=== PATIENT | female | born 2000 | race Caucasian/White ===

== ENCOUNTER 2022-06-18 18:49 | Inpatient (IN) ==
[2022-06-18] MEDS ORDERED: ACETYLCYSTEINE IV ONE (19:32)
[2022-06-18] MEDS ORDERED: ONDANSETRON INJ 2 MG/ML 2 ML VIAL IV STA (19:32)
[2022-06-18] MEDS ORDERED: DEXTROSE 5% IV ONE (19:32)
[2022-06-18] MEDS ORDERED: AcetylCYSTEINE IV 21 HR REGIMEN (>40KG) IV STA (19:32)
[2022-06-18] MEDS ORDERED: SODIUM CHLORIDE 0.9% 1000ML 1,000 ML IV ONE (19:32)
[2022-06-18] MEDS ORDERED: ONDANSETRON INJ 2 MG/ML 2 ML VIAL ONE (19:33)
--- NOTE | 2022-06-18 19:44 | Emergency Department Note ---
Impression & Plan Depression with suicidal ideation, Acetaminophen overdose, Suicide attempt by multiple drug overdose, Nausea & vomiting ED Provider Note NAME: SHERWIN PRUITT AGE: 21 SEX: F : 2000 ARRIVES VIA: Walk-In INFORMANT: Patient, the patient's roommates ED PROVIDER(S): Elder Escalante DO CHIEF COMPLAINT: Suicidal gesture HPI: The patient is a 21-year-old female who has a history of mood disorder who presented to the emergency department for an evaluation of possible overdose. The patient admitted to roommates that she took an overdose of multiple gmhe-pko-talswvr medications including DayQuil NyQuil ibuprofen and acetaminophe n this morning at approximately 0500. States that she was out drinking late last night. The patient is being very evasive and vague. She is not being forthcoming with why she did this. Roommates states that she may have been depressed although they also do not have a definite reason why the patient did this. The patient states that she has no previous history of suicidal gesture. She states that she has no previous history of mental health admission. She has had episodes of right upper quadrant pain as well as vomiting. Poison Control Center was called prior to my involvement. Given the patient's presentation and symptoms at this time they recommend N-acetylcysteine. ROS: See above HPI for pertinent positives & negatives. A total of 10 systems reviewed and were otherwise negative. PAST MEDICAL HISTORY: See Below PAST SURGICAL HISTORY: See Below FAMILY HISTORY: See Below SOCIAL HISTORY: See Below HOME MEDICATIONS: See Below ALLERGIES: See Below VITALS: See Below PHYSICAL EXAMINATION: GENERAL: The patient is awake and alert. She is very anxious appearing. She is actively vomiting into an emesis basin. EYES: The conjunctivae are clear. The pupils are round and reactive. EARS, NOSE, MOUTH AND THROAT: The nose is without any evidence of any deformity. NECK: The neck is nontender and supple. RESPIRATORY: Normal respiratory effort is noted there is no evidence of wheezing rhonchi or rales CARDIOVASCULAR: Tachycardic and regular heart sounds were noted auscultation. There is no definite murmur. GASTROINTESTINAL: The abdomen is soft and nondistended. There is right upper quadrant tenderness to palpation but no guarding or rigidity. MUSCULOSKELETAL/EXTREMITIES: There is no evidence of gross deformity full range of motion is noted in the hips and shoulders. SKIN: There is no obvious evidence of any rash. There are no petechiae, pallor or cyanosis noted. NEUROLOGIC: Patient is awake alert and oriented x3. Gait was steady. PSYCH: The patient's affect is flat. She makes very poor eye contact. She currently does admit to this episode being a suicidal gesture. MEDICAL DECISION MAKING: The patient is a 21-year-old female who presented to the emergency department for an evaluation after it became known that she attempted to harm her self by taking multiple qlob-cav-xzmejvb medications and is suicidal gesture this morning. The patient presented with symptomatic Tylenol toxicity. She had nausea vomiting and right upper quadrant tenderness. Poison control was consulted and they recommended the patient be admitted medically for N- acetylcysteine protocol. Patient was treated with IV fluids and IV antiemetics. She was reevaluated multiple times. I discussed her case with the on-call [facility] hospitalist. They have agreed to evaluate the patient in the emergency department for further management and disposition. Triage Nursing notes reviewed. Prior medical records reviewed Vital Signs: reviewed and remarkable for tachycardia. Differential diagnosis: Mood disorder, infection, hypoglycemia, electrolyte abnormalities, cardiac sources, intracerebral event, toxicologic, trauma, neurologic, as well as other pathologies. ER treatment provided: See below Diagnostics interpreted by me: ECG: EKG was obtained in the emergency department. My interpretation is 91 bpm with sinus rhythm. There is no ectopy. There is no acute ST segment abnormalities. MT interval is 144 ms. QTc is 460 ms. QRS durations is 78 ms. Cardiac Monitoring: An order was placed for continuous cardiac monitoring. The monitor shows a rate of 94 bpm with sinus rhythm. Laboratory studies: As stated above and show below. Imaging studies: See below Consultation(s): Dr. العلي was notified about the patient. He will evaluate the patient in the emergency department for further management and disposition. ED COURSE: Procedures: none Critical Care: I have personally spent greater than 45 minutes of critical care time in the direct management of this patient. This includes bedside care, interpretation of diagnostic studies, and testing, discussion with consultants, patient, and family members, and other required patient management activities. This 45 minutes is in excess of all separately billable procedures. Past Med/Surg History Medical History IUD (intrauterine device) in place Mood disorder Surgical History No pertinent past surgical history Social History Smoking Status: Current every day smoker Tobacco Type: E-cigarettes / Vaping Preferred Language: Arabic marital status: Single current occupational status: student Feels Safe at Home: Yes Allergies Allergies Allergy/AdvReac Type Severity Reaction Status Date / Time No Known Allergies Allergy Verified 04/06/21 19:46 Home Meds Previous Rx's Medication Instructions Recorded oxycodone 5 mg tablet 5 mg PO Q8H PRN pain #11 tabs 04/06/21 Results & Data (ED) Vital Signs Vital Signs - 24 hr 06/18/22 19:11 06/18/22 21:00 06/18/22 21:30 Temperature 36.9 C Temperature Source Temporal Artery Scan Pulse Rate 132 H 96 H Pulse Rate from SpO2 Sensor Respiratory Rate 19 19 Respiratory Effort / Characteristics Non-Labored Spontaneous Respiratory Depth Normal Respiratory Pattern Regular Blood Pressure 135/84 120/53 L 122/70 Blood Pressure Mean 101 75 87 Pulse Oximetry 99 100 Oxygen Delivery Method Room Air Room Air Sepsis Recent Fever Within 48 Hours No Sepsis New/Unexplained Change in Mental Status N/A Sepsis Action Taken by Nursing No Action Required 06/18/22 21:30 06/18/22 22:00 06/18/22 22:00 Temperature Temperature Source Pulse Rate 86 94 H Pulse Rate from SpO2 Sensor 88 92 H Respiratory Rate 22 18 Respiratory Effort / Characteristics Respiratory Depth Respiratory Pattern Blood Pressure 127/73 Blood Pressure Mean 91 Pulse Oximetry 98 98 Oxygen Delivery Method Sepsis Recent Fever Within 48 Hours Sepsis New/Unexplained Change in Mental Status Sepsis Action Taken by Jail Medications Current Medication List: was personally reviewed by me Laboratory Data Attestation: I reviewed the patient's lab results. Result diagrams: 06/18/22 19:40 06/18/22 19:40 Lab Results 06/18/22 06/18/22 06/18/22 Range/Units 19:40 19:40 19:40 WBC 10.10 (4.8-10.8) K/ul RBC 4.34 (3.93-5.22) M/uL Hgb 11.8 L (12.0-16.0) g/dl Hct 36.2 (34.1-44.9) % MCV 83.4 (80.0-100.0) fL MCH 27.2 (25.0-34.0) pg MCHC 32.6 (32.0-36.0) g/dL RDW Std Deviation 52.4 H (36.4-46.3) fL RDW Coeff of Aaron 17.1 H (11.5-14.5) % Plt Count 386 (130-400) K/uL MPV 10.3 (9.4-12.3) fL Immature Gran % (Auto) 0.4 % Neut % (Auto) 73.0 % Lymph % (Auto) 16.1 % [place] % (Auto) 9.7 % Eos % (Auto) 0.1 % Baso % (Auto) 0.7 % Neut # (Auto) 7.37 H (1.4-6.5) K/uL Lymph # (Auto) 1.63 (1.2-3.4) K/uL [place] # (Auto) 0.98 H (0.24-0.82) K/uL Eos # (Auto) 0.01 (0-0.50) K/uL Baso # (Auto) 0.07 (0-0.2) K/uL Immature Gran # (Auto) 0.04 H (0.00-0.02) K/uL PT (9.0-12.0) Seconds INR (0.9-1.1) APTT (21.0-31.0) Seconds PTT Ratio VBG pH (7.36-7.41) VBG pCO2 (38-50) mmHg VBG pO2 mmHg VBG HCO3 mmol/L VBG O2 Saturation % VBG Base Excess mEq/L Sodium 137 (136-145) mmol/L Potassium 4.5 (3.5-5.1) mmol/L Chloride 104 (98-107) mmol/L Carbon Dioxide 20 L (21-32) mmol/L Anion Gap 13 H (3-11) BUN 9 (6-23) mg/dl Creatinine 1.08 (0.6-1.2) mg/dl Est Cr Clr Drug Dosing 69.4 ml/min Est GFR ( Amer) 85.6 ml/min Est GFR (Non-Af Amer) 73.8 ml/min BUN/Creatinine Ratio 8.3 L (10-20) Glucose 118 H (70-99(Fasting)) mg/dl Calcium 9.2 (8.5-10.1) mg/dl Total Bilirubin 0.3 (0.2-1.0) mg/dl Direct Bilirubin 0.1 (0-0.2) mg/dl AST 16 (13-39) U/L ALT 12 (7-52) U/L Alkaline Phosphatase 75 (34-104) U/L Total Protein 8.4 H (6.0-8.3) gm/dl Albumin 4.7 (3.4-5.0) gm/dl Globulin 3.7 (2.5-4.0) gm/dl Albumin/Globulin Ratio 1.3 (0.9-2) TSH 0.521 (0.300-4.500) uIu/ml Urine Color Urine Appearance (Clear) Urine pH (4.5-7.5) Ur Specific [place] (1.000-1.030) Urine Protein (Negative) Urine Glucose (UA) (Negative) Urine Ketones (Negative) Urine Blood (Negative) Urine Nitrite (Negative) Urine Bilirubin (Negative) Urine Urobilinogen (Negative) Ur Leukocyte Esterase (Negative) Urine WBC (Auto) (0-5) /hpf Urine RBC (Auto) (0-4) /hpf U Hyaline Cast (Auto) (0-5) /lpf U Epithel Cells (Auto) (0-5) /lpf Urine Bacteria (Auto) (Negative) Salicylates (3.0-30) mg/dl Acetaminophen (10-30) ug/ml Ethyl Alcohol mg/dL (<10.0) mg/dl SARS-CoV-2, RNA, NAAT (NEGATIVE) 06/18/22 06/18/22 06/18/22 Range/Units 19:40 19:40 19:40 WBC (4.8-10.8) K/ul RBC (3.93-5.22) M/uL Hgb (12.0-16.0) g/dl Hct (34.1-44.9) % MCV (80.0-100.0) fL MCH (25.0-34.0) pg MCHC (32.0-36.0) g/dL RDW Std Deviation (36.4-46.3) fL RDW Coeff of Aaron (11.5-14.5) % Plt Count (130-400) K/uL MPV (9.4-12.3) fL Immature Gran % (Auto) % Neut % (Auto) % Lymph % (Auto) % [place] % (Auto) % Eos % (Auto) % Baso % (Auto) % Neut # (Auto) (1.4-6.5) K/uL Lymph # (Auto) (1.2-3.4) K/uL [place] # (Auto) (0.24-0.82) K/uL Eos # (Auto) (0-0.50) K/uL Baso # (Auto) (0-0.2) K/uL Immature Gran # (Auto) (0.00-0.02) K/uL PT 12.1 H (9.0-12.0) Seconds INR 1.1 (0.9-1.1) APTT 25.4 (21.0-31.0) Seconds PTT Ratio 0.9 VBG pH (7.36-7.41) VBG pCO2 (38-50) mmHg VBG pO2 mmHg VBG HCO3 mmol/L VBG O2 Saturation % VBG Base Excess mEq/L Sodium (136-145) mmol/L Potassium (3.5-5.1) mmol/L Chloride (98-107) mmol/L Carbon Dioxide (21-32) mmol/L Anion Gap (3-11) BUN (6-23) mg/dl Creatinine (0.6-1.2) mg/dl Est Cr Clr Drug Dosing ml/min Est GFR ( Amer) ml/min Est GFR (Non-Af Amer) ml/min BUN/Creatinine Ratio (10-20) Glucose (70-99(Fasting)) mg/dl Calcium (8.5-10.1) mg/dl Total Bilirubin (0.2-1.0) mg/dl Direct Bilirubin (0-0.2) mg/dl AST (13-39) U/L ALT (7-52) U/L Alkaline Phosphatase (34-104) U/L Total Protein (6.0-8.3) gm/dl Albumin (3.4-5.0) gm/dl Globulin (2.5-4.0) gm/dl Albumin/Globulin Ratio (0.9-2) TSH (0.300-4.500) uIu/ml Urine Color Urine Appearance (Clear) Urine pH (4.5-7.5) Ur Specific [place] (1.000-1.030) Urine Protein (Negative) Urine Glucose (UA) (Negative) Urine Ketones (Negative) Urine Blood (Negative) Urine Nitrite (Negative) Urine Bilirubin (Negative) Urine Urobilinogen (Negative) Ur Leukocyte Esterase (Negative) Urine WBC (Auto) (0-5) /hpf Urine RBC (Auto) (0-4) /hpf U Hyaline Cast (Auto) (0-5) /lpf U Epithel Cells (Auto) (0-5) /lpf Urine Bacteria (Auto) (Negative) Salicylates < 3.0 L (3.0-30) mg/dl Acetaminophen 27 (10-30) ug/ml Ethyl Alcohol mg/dL < 10.0 (<10.0) mg/dl SARS-CoV-2, RNA, NAAT (NEGATIVE) 06/18/22 06/18/22 06/18/22 Range/Units 19:49 19:55 21:43 WBC (4.8-10.8) K/ul RBC (3.93-5.22) M/uL Hgb (12.0-16.0) g/dl Hct (34.1-44.9) % MCV (80.0-100.0) fL MCH (25.0-34.0) pg MCHC (32.0-36.0) g/dL RDW Std Deviation (36.4-46.3) fL RDW Coeff of Aaron (11.5-14.5) % Plt Count (130-400) K/uL MPV (9.4-12.3) fL Immature Gran % (Auto) % Neut % (Auto) % Lymph % (Auto) % [place] % (Auto) % Eos % (Auto) % Baso % (Auto) % Neut # (Auto) (1.4-6.5) K/uL Lymph # (Auto) (1.2-3.4) K/uL [place] # (Auto) (0.24-0.82) K/uL Eos # (Auto) (0-0.50) K/uL Baso # (Auto) (0-0.2) K/uL Immature Gran # (Auto) (0.00-0.02) K/uL PT (9.0-12.0) Seconds INR (0.9-1.1) APTT (21.0-31.0) Seconds PTT Ratio VBG pH 7.35 L (7.36-7.41) VBG pCO2 35 L (38-50) mmHg VBG pO2 65 mmHg VBG HCO3 19 mmol/L VBG O2 Saturation 93.6 % VBG Base Excess -5.6 mEq/L Sodium (136-145) mmol/L Potassium (3.5-5.1) mmol/L Chloride (98-107) mmol/L Carbon Dioxide (21-32) mmol/L Anion Gap (3-11) BUN (6-23) mg/dl Creatinine (0.6-1.2) mg/dl Est Cr Clr Drug Dosing ml/min Est GFR ( Amer) ml/min Est GFR (Non-Af Amer) ml/min BUN/Creatinine Ratio (10-20) Glucose (70-99(Fasting)) mg/dl Calcium (8.5-10.1) mg/dl Total Bilirubin (0.2-1.0) mg/dl Direct Bilirubin (0-0.2) mg/dl AST (13-39) U/L ALT (7-52) U/L Alkaline Phosphatase (34-104) U/L Total Protein (6.0-8.3) gm/dl Albumin (3.4-5.0) gm/dl Globulin (2.5-4.0) gm/dl Albumin/Globulin Ratio (0.9-2) TSH (0.300-4.500) uIu/ml Urine Color Yellow Urine Appearance Cloudy A (Clear) Urine pH 6.0 (4.5-7.5) Ur Specific [place] 1.019 (1.000-1.030) Urine Protein 2+ H (Negative) Urine Glucose (UA) Negative (Negative) Urine Ketones 1+ H (Negative) Urine Blood Negative (Negative) Urine Nitrite Negative (Negative) Urine Bilirubin Negative (Negative) Urine Urobilinogen Negative (Negative) Ur Leukocyte Esterase Negative (Negative) Urine WBC (Auto) >30 H (0-5) /hpf Urine RBC (Auto) 0-4 (0-4) /hpf U Hyaline Cast (Auto) 5-10 H (0-5) /lpf U Epithel Cells (Auto) >30 H (0-5) /lpf Urine Bacteria (Auto) Negative (Negative) Salicylates (3.0-30) mg/dl Acetaminophen (10-30) ug/ml Ethyl Alcohol mg/dL (<10.0) mg/dl SARS-CoV-2, RNA, NAAT NEGATIVE (NEGATIVE) Administered Medications Acetylcysteine 2,650 mg/ (Dextrose) 513.25 mls @ 125 mls/hr IV ONCE ONE Stop: 06/19/22 00:39 Last Admin: 06/18/22 21:45 Dose: 125 mls/hr Documented By: BINA Discontinued Medications Sodium Chloride (Nss 1000ml) 1,000 mls @ 999 mls/hr IV .Q1H1M ONE Stop: 06/18/22 20:32 Last Infusion: 06/18/22 20:45 Dose: 0 mls/hr Documented By: Admin: 06/18/22 19:44 Dose: 999 mls/hr Documented By: IBNA Acetylcysteine 7,940 mg/ (Dextrose) 239.7 mls @ 200 mls/hr IV ONCE ONE Stop: 06/18/22 20:43 Last Infusion: 06/18/22 21:45 Dose: 0 mls/hr Documented By: Admin: 06/18/22 20:40 Dose: 200 mls/hr Documented By: DEYSI Ondansetron HCl (Ondansetron Inj 2 Mg/Ml 2 Ml Vial) 4 mg IV NOW STA Stop: 06/18/22 19:33 Last Admin: 06/18/22 19:44 Dose: 4 mg Documented By: BINA Ondansetron HCl (Ondansetron Inj 2 Mg/Ml 2 Ml Vial) Confirm Administered Dose 4 mg .ROUTE .STK-MED ONE Stop: 06/18/22 19:34 Last Admin: 06/18/22 19:44 Dose: Not Given Documented By: BINA Discharge Plan Visit Data Chief Complaint: Overdose (Intentional) Stated Complaint: OVERDOSE INTENTIONAL, HAS NOT EATEN NAUSEA ED Provider: Elder Escalante Discharge Problem: Depression with suicidal ideation, Acetaminophen overdose, Suicide attempt by multiple drug overdose, Nausea & vomiting Patient Disposition: Admitted As Inpatient Discharge Instructions Interventions: ED Discharge Assessment Last Done: 06/18/22 22:56 Forms Stand Alone Forms: My [facility], Suicide Prevention Resources Prescriptions Prescriptions: No Action oxycodone 5 mg tablet 5 mg PO Q8H PRN (Reason: pain) Qty: 11 0RF Referrals [facility]: [facility] [Primary Care Provider] -
[2022-06-18 19:55] LABS: Basophils # (auto) 0.07 K/uL (0-0.2); Basophils % (auto) 0.7 %; Eosinophils # (auto) 0.01 K/uL (0-0.50); Eosinophils % (auto) 0.1 %; Hematocrit (blood only) 36.2 % (34.1-44.9); Hemoglobin 11.8 g/dl (12.0-16.0); Immature Granulocytes # (auto) 0.04 K/uL (0.00-0.02); Immature Granulocytes % (auto) 0.4 %; Lymphocytes # (auto) 1.63 K/uL (1.2-3.4); Lymphocytes % (auto) 16.1 %; Mean Corpuscular Hemoglobin 27.2 pg (25.0-34.0); Mean Corpuscular Hgb Conc 32.6 g/dL (32.0-36.0); Mean Corpuscular Volume 83.4 fL (80.0-100.0); Mean Platelet Volume 10.3 fL (9.4-12.3); Monocytes # (auto) 0.98 K/uL (0.24-0.82); Monocytes % (auto) 9.7 %; Neutrophils # (auto) 7.37 K/uL (1.4-6.5); Platelet Count 386 K/uL (130-400); RDW Coefficient of Variation 17.1 % (11.5-14.5); RDW Standard Deviation 52.4 fL (36.4-46.3); Red Blood Count 4.34 M/uL (3.93-5.22)
[2022-06-18 20:14] LABS: INR 1.1 (0.9-1.1); Partial Thromboplastin Ratio 0.9; Partial Thromboplastin Time 25.4 Seconds (21.0-31.0); Prothrombin Time 12.1 Seconds (9.0-12.0)
[2022-06-18 20:14] LABS: Base Excess VBG -5.6 mEq/L; HCO3 VBG 19 mmol/L; Oxygen Saturation VBG 93.6 %; PCO2 VBG 35 mmHg (38-50); PO2 VBG 65 mmHg; pH VBG 7.35 (7.36-7.41)
[2022-06-18 20:15] LABS: Albumin Globulin Ratio 1.3 (0.9-2); Albumin Level 4.7 gm/dl (3.4-5.0); BUN Creatinine Ratio 8.3 (10-20); Bilirubin Direct 0.1 mg/dl (0-0.2); Bilirubin,Total 0.3 mg/dl (0.2-1.0); Calcium 9.2 mg/dl (8.5-10.1); Creatinine Clr Calc Pharmacy 69.4 ml/min; Est GFR (African American) 85.6 ml/min; Est GFR (Non-African American) 73.8 ml/min; Globulin 3.7 gm/dl (2.5-4.0); Potassium 4.5 mmol/L (3.5-5.1); Total Protein 8.4 gm/dl (6.0-8.3)
[2022-06-18 20:16] LABS: Acetaminophen 27 ug/ml (10-30); Salicylate < 3.0 mg/dl (3.0-30)
--- NOTE | 2022-06-18 22:02 | History & Physical Report ---
Date of Service June 18, 2022 Assessment & Plan (1) Acetaminophen overdose: Plan: 21yo female with PMHx of anxiety/depression, PTSD, history of self cutting presents for possible overdose. Acetaminophen Overdose -presented several hours after ingestion of dayquil, nyquil, ibuprofen, acetaminophen, melatonin -acetaminophen level: 27 -LFTs wnl -poison control following: recommended NAC protocol and monitoring of LFTs, PT/INR -s/p 1L bolus NSS in ED. Encourage oral intake. -NAC protocol initiated -Psych consulted for potential SI Anxiety/Depression/PTSD -hold home Trintellix, prazosin DVT ppx: SCDs FEN/GI: Regular Code Status: Full Dispo: med tele (2) Mood disorder: (3) Anxiety: (4) Depression: (5) PTSD (post-traumatic stress disorder): History of Present Illness Chief Complaint: acetaminophen overdose Primary Care Provider: [facility] 21[facility] female with PMHx of anxiety/depression, PTSD, history of self cutting presents for possible overdose. Early this morning ~0500 she ingested half a bottle of dayquil and nyquil, 15 pills of melatonin, half a bottle of ibuprofen, and half a bottle of tylenol. Exact number of pills unknown. She was out drinking last night as well. When asked why she took all these medications, she states "for many reasons" without going into much detail. 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 Chaya eventually let them in to the room and she was brought to the ER. She has diffuse abdominal pain predominantly in her epigastric region. Her last meal was at 1400. Some associated N/V earlier. Also states her vision is a little blurry with a mild headache. Denies fevers, chills, chest pain, sob, constipation/diarrhea, dysuria. Posion control is involved and recommended NAC protocol. Allergies Allergy/AdvReac Type Severity Reaction Status Date / Time No Known Allergies Allergy Verified 04/06/21 19:46 Home Medications Medication Instructions Recorded Confirmed Type oxycodone 5 mg tablet 5 mg PO Q8H PRN pain #11 tabs 04/06/21 04/26/21 Rx Past Med/Surg History Medical History IUD (intrauterine device) in place Mood disorder Surgical History No pertinent past surgical history Social History Smoking Status: Current every day smoker Tobacco Type: E-cigarettes / Vaping Hx Alcohol Use: Yes Alcohol type: beer Hx Substance Use: Yes Last Used Substance: Days (ago) Preferred Language: Greek Communication Ability: Effective Analytics Associate Required: No Beliefs That Will Affect Care: None marital status: Single Current Living Situation Comment: student current occupational status: student Other Information That Helps Us Care for You: No Feels Safe at Home: Yes Safety Concerns: Feels Safe At This Time Assistive Devices: None Review of Systems Review of Systems: All systems reviewed & are unremarkable except as noted in HPI & below Physical Exam Physical Exam: Constitutional: Well-developed, well-nourished patient, in no acute distress, pleasant and normal affect, intact memory. Vitals as above. HEENT: No scleral injection or discharge.Moist mucous membranes. Neck: Supple without lymphadenopathy or thyromegaly. Trachea midline. Lungs: Clear to auscultation bilaterally with good effort. Cardiac: Regular rate and rhythm.No murmurs.No extremity edema. 2+ distal peripheral pulses. Abdomen: Bowel sounds present. Soft and nondistended.Diffuse abdominal tenderness without guarding or rebound tenderness. No hepatosplenomegaly. MSK: No cyanosis or clubbing. Extremities motor strength 5/5. Skin: No rashes, warm, dry. Neurologic: Grossly intact cranial nerves. PERRL. Psych: AOx3 Results & Data Results & Data ([facility]) Vital Signs (Past 12 Hours) Vital Signs Temp Pulse Resp BP Pulse Ox O2 Del Method 06/18/22 21:00 96 H 19 120/53 L 100 Room Air 06/18/22 19:11 36.9 C 132 H 19 135/84 99 Room Air Laboratory Results Laboratory Results WBC 10.10 K/ul (4.8-10.8) 06/18/22 19:40 RBC 4.34 M/uL (3.93-5.22) 06/18/22 19:40 Hgb 11.8 g/dl (12.0-16.0) L 06/18/22 19:40 Hct 36.2 % (34.1-44.9) 06/18/22 19:40 MCV 83.4 fL (80.0-100.0) 06/18/22 19:40 MCH 27.2 pg (25.0-34.0) 06/18/22 19:40 MCHC 32.6 g/dL (32.0-36.0) 06/18/22 19:40 RDW Std Deviation 52.4 fL (36.4-46.3) H 06/18/22 19:40 RDW Coeff of Aaron 17.1 % (11.5-14.5) H 06/18/22 19:40 Plt Count 386 K/uL (130-400) 06/18/22 19:40 MPV 10.3 fL (9.4-12.3) 06/18/22 19:40 Immature Gran % (Auto) 0.4 % 06/18/22 19:40 Neut % (Auto) 73.0 % 06/18/22 19:40 Lymph % (Auto) 16.1 % 06/18/22 19:40 [place] % (Auto) 9.7 % 06/18/22 19:40 Eos % (Auto) 0.1 % 06/18/22 19:40 Baso % (Auto) 0.7 % 06/18/22 19:40 Neut # (Auto) 7.37 K/uL (1.4-6.5) H 06/18/22 19:40 Lymph # (Auto) 1.63 K/uL (1.2-3.4) 06/18/22 19:40 [place] # (Auto) 0.98 K/uL (0.24-0.82) H 06/18/22 19:40 Eos # (Auto) 0.01 K/uL (0-0.50) 06/18/22 19:40 Baso # (Auto) 0.07 K/uL (0-0.2) 06/18/22 19:40 Immature Gran # (Auto) 0.04 K/uL (0.00-0.02) H 06/18/22 19:40 PT 12.1 Seconds (9.0-12.0) H 06/18/22 19:40 INR 1.1 (0.9-1.1) 06/18/22 19:40 APTT 25.4 Seconds (21.0-31.0) 06/18/22 19:40 PTT Ratio 0.9 06/18/22 19:40 VBG pH 7.35 (7.36-7.41) L 06/18/22 19:49 VBG pCO2 35 mmHg (38-50) L 06/18/22 19:49 VBG pO2 65 mmHg 06/18/22 19:49 VBG HCO3 19 mmol/L 06/18/22 19:49 VBG O2 Saturation 93.6 % 06/18/22 19:49 VBG Base Excess -5.6 mEq/L 06/18/22 19:49 Sodium 137 mmol/L (136-145) 06/18/22 19:40 Potassium 4.5 mmol/L (3.5-5.1) 06/18/22 19:40 Chloride 104 mmol/L (98-107) 06/18/22 19:40 Carbon Dioxide 20 mmol/L (21-32) L 06/18/22 19:40 Anion Gap 13 (3-11) H 06/18/22 19:40 BUN 9 mg/dl (6-23) 06/18/22 19:40 Creatinine 1.08 mg/dl (0.6-1.2) 06/18/22 19:40 Est Cr Clr Drug Dosing 69.4 ml/min 06/18/22 19:40 Est GFR ( Amer) 85.6 ml/min 06/18/22 19:40 Est GFR (Non-Af Amer) 73.8 ml/min 06/18/22 19:40 BUN/Creatinine Ratio 8.3 (10-20) L 06/18/22 19:40 Glucose 118 mg/dl (70-99(Fasting)) H 06/18/22 19:40 Calcium 9.2 mg/dl (8.5-10.1) 06/18/22 19:40 Total Bilirubin 0.3 mg/dl (0.2-1.0) 06/18/22 19:40 Direct Bilirubin 0.1 mg/dl (0-0.2) 06/18/22 19:40 AST 16 U/L (13-39) 06/18/22 19:40 ALT 12 U/L (7-52) 06/18/22 19:40 Alkaline Phosphatase 75 U/L (34-104) 06/18/22 19:40 Total Protein 8.4 gm/dl (6.0-8.3) H 06/18/22 19:40 Albumin 4.7 gm/dl (3.4-5.0) 06/18/22 19:40 Globulin 3.7 gm/dl (2.5-4.0) 06/18/22 19:40 Albumin/Globulin Ratio 1.3 (0.9-2) 06/18/22 19:40 TSH 0.521 uIu/ml (0.300-4.500) 06/18/22 19:40 Salicylates < 3.0 mg/dl (3.0-30) L 06/18/22 19:40 Acetaminophen 27 ug/ml (10-30) 06/18/22 19:40 Ethyl Alcohol mg/dL < 10.0 mg/dl (<10.0) 06/18/22 19:40 SARS-CoV-2, RNA, NAAT NEGATIVE (NEGATIVE) 06/18/22 19:55 Code Status & VTE Plan VTE Prophylaxis Plan VTE Prophylaxis will be ordered: Yes Supervising Physician Co-Signing Physician Notes Attending addendum: I have physically seen this patient, have supervised the medical residents activities, and agree with the H&P unless as otherwise noted. Assessment and Plan: Intentional acetaminophen overdose- Initial level 27 Conversation with poison control advises N-acetylcysteine protocol, which is begun in ED we will continue Status post 1 L normal saline ED Consult psychiatry Anxiety/depression/PTSD holding outpatient Trintellix and prazosin for now, medications will be prescribed per psychiatry Patient be admitted to monitored bed Remaining orders and notations as noted Resident Activity Tracking Resident Involvement: Resident Care Provided Care Provided: Adult Hospital Medicine
[2022-06-18 22:18] LABS: Appearance Urine Cloudy (Clear); Bacteria Urine Automated Negative (Negative); Bilirubin Urine Negative (Negative); Blood Urine Negative (Negative); Color Urine Yellow; Epithelial Cell Urine Auto >30 /lpf (0-5); Glucose Urine UA Negative (Negative); Ketones Urine 1+ (Negative); Leukocyte Esterase Urine Negative (Negative); Nitrite Urine Negative (Negative); Protein Urine 2+ (Negative); RBC Urine Automated 0-4 /hpf (0-4); Specific Gravity Urine 1.019 (1.000-1.030); Urobilinogen Urine Negative (Negative); WBC Urine Automated >30 /hpf (0-5)
[2022-06-18 23:09] LABS: Amphetamines+Metham, Urine Neg (Neg); Barbiturates, Urine Neg (Neg); Benzodiazepine, Urine Neg (Neg); Cocaine, Urine Neg (Neg); MDMA (Ecstacy), Urine Neg (Neg); Methadone, Urine Neg (Neg); Opiate, Urine Neg (Neg); Phencyclidine, Urine Neg (Neg)
[2022-06-18] MEDS ORDERED: ONDANSETRON INJ 2 MG/ML 2 ML VIAL IV PRN (23:35)
[2022-06-18] MEDS ORDERED: FLUARIX QUADRIVALENT 0.5 ML SYR IM ONE (23:47)
[2022-06-19] MEDS ORDERED: DEXTROSE 5% IV ONE (00:33)
[2022-06-19] MEDS ORDERED: ACETYLCYSTEINE IV ONE (00:33)
[2022-06-19 06:12] LABS: Basophils # (auto) 0.07 K/uL (0-0.2); Basophils % (auto) 0.7 %; Eosinophils # (auto) 0.14 K/uL (0-0.50); Eosinophils % (auto) 1.5 %; Hematocrit (blood only) 31.7 % (34.1-44.9); Hemoglobin 10.3 g/dl (12.0-16.0); Immature Granulocytes # (auto) 0.02 K/uL (0.00-0.02); Immature Granulocytes % (auto) 0.2 %; Lymphocytes # (auto) 2.23 K/uL (1.2-3.4); Lymphocytes % (auto) 23.7 %; Mean Corpuscular Hemoglobin 27.1 pg (25.0-34.0); Mean Corpuscular Hgb Conc 32.5 g/dL (32.0-36.0); Mean Corpuscular Volume 83.4 fL (80.0-100.0); Monocytes # (auto) 0.83 K/uL (0.24-0.82); Monocytes % (auto) 8.8 %; Neutrophils # (auto) 6.11 K/uL (1.4-6.5); Neutrophils % (auto) 65.1 %; Platelet Count 314 K/uL (130-400); RDW Coefficient of Variation 17.2 % (11.5-14.5); RDW Standard Deviation 52.4 fL (36.4-46.3)
[2022-06-19 06:26] LABS: INR 1.1 (0.9-1.1); Prothrombin Time 12.1 Seconds (9.0-12.0)
[2022-06-19 06:52] LABS: Alanine Aminotransferase 10 U/L (7-52); Albumin Globulin Ratio 1.4 (0.9-2); Albumin Level 3.9 gm/dl (3.4-5.0); Alkaline Phosphatase 58 U/L (34-104); Anion Gap 7 (3-11); Aspartate Aminotransferase 12 U/L (13-39); BUN Creatinine Ratio 10.5 (10-20); Bilirubin,Total 0.3 mg/dl (0.2-1.0); Blood Urea Nitrogen 6 mg/dl (6-23); Carbon Dioxide 22 mmol/L (21-32); Chloride 108 mmol/L (98-107); Creatinine Clr Calc Pharmacy 131.5 ml/min; Est GFR (African American) > 150.0 ml/min; Est GFR (Non-African American) 133.5 ml/min; Globulin 2.8 gm/dl (2.5-4.0); Glucose 92 mg/dl (70-99(Fasting)); Potassium 3.6 mmol/L (3.5-5.1); Sodium 137 mmol/L (136-145); Total Protein 6.7 gm/dl (6.0-8.3)
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
[2022-06-19 14:52] LABS: INR 1.2 (0.9-1.1); Prothrombin Time 12.6 Seconds (9.0-12.0)
[2022-06-19 15:34] LABS: Albumin Level 3.8 gm/dl (3.4-5.0); Bilirubin,Total 0.3 mg/dl (0.2-1.0); Total Protein 6.6 gm/dl (6.0-8.3)
--- NOTE | 2022-06-19 16:43 | Electrocardiogram Report ---
Test Reason : Blood Pressure : / mmHG Vent. Rate : 091 BPM Atrial Rate : 091 BPM P-R Int : 144 ms QRS Dur : 078 ms QT Int : 374 ms P-R-T Axes : 071 086 061 degrees QTc Int : 460 ms Poor data quality, interpretation may be adversely affected Normal sinus rhythm Normal ECG When compared with ECG of 06-APR-2021 19:22, QT has lengthened Confirmed by Elder Salazar ([id number]) on 06/19/2022 4:43:36 PM Referred By: REFERRED SELF Confirmed By:Elder Salazar
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
--- NOTE | 2022-06-19 21:04 | Billing Data ---
Date of Service June 19, 2022 Coding Level of Care Code 87723 Initial Inpt Care Lvl 2
[2022-06-20 12:01] LABS: Pregnancy Test, Urine Negative (Negative)
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
--- NOTE | 2022-06-20 16:13 | Discharge Summary ---
Date of Service June 20, 2022 Admission HPI Per Admitting Provider 21yo female with PMHx of anxiety/depression, PTSD, history of self cutting presents for possible overdose. Early this morning ~0500 she ingested half a bottle of dayquil and nyquil, 15 pills of melatonin, half a bottle of ibuprofen, and half a bottle of tylenol. Exact number of pills unknown. She was out drinking last night as well. When asked why she took all these medications, she states "for many reasons" without going into much detail. 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 Chaya eventually let them in to the room and she was brought to the ER. She has diffuse abdominal pain predominantly in her epigastric region. Her last meal was at 1400. Some associated N/V earlier. Also states her vision is a little blurry with a mild headache. Denies fevers, chills, chest pain, sob, constipation/diarrhea, dysuria. Posion control is involved and recommended NAC protocol. Principal Diagnosis Depression with suicide attempt Discharge Exam very slightly built lady was sitting up in bed around 8:45 AM when I saw her. Mother in the room with her. The patient was little more interactive today and was signing 201 papers offered by behavioral health liaison nurse when I met the patient pleasant with low-volume speech Moist oral mucosa, anicteric sclerae abdomen soft nontender Discharge Data Allergies Allergy/AdvReac Type Severity Reaction Status Date / Time No Known Allergies Allergy Verified 04/06/21 19:46 Consultations 06/18/22 20:47 ED Decision to Admit Stat 06/18/22 23:35 Consult Psychiatry Routine Hospital Course (1) Acetaminophen overdose: 21yo female with PMHx of anxiety/depression, PTSD, history of self cutting presents for possible overdose. Acetaminophen Overdose -presented several hours after ingestion of dayquil, nyquil, ibuprofen, acetaminophen, melatonin -acetaminophen level: 27 -LFTs wnl -poison control following: recommended NAC protocol and monitoring of LFTs, PT/INR -s/p 1L bolus NSS in ED. Encourage oral intake. -NAC protocol initiated -Psych consulted for potential SI-recommended inpatient psychiatry facility where she was transferred on hospital day 3. Anxiety/Depression/PTSD -held here home Trintellix, prazosin Telemetry within normal limits. 1 and observe 1 observation all the time here. (2) Mood disorder: (3) Anxiety: (4) Depression: (5) PTSD (post-traumatic stress disorder): (6) Normocytic anemia: Hemoglobin 10.4. Close follow-up with primary care physician essential at discharge. Plan Discharge to inpatient psychiatry facility chosen by the family. [facility] at 1800 h 06/20 The patient got acetylcysteine per poison control protocol. Acetaminophen level 29 and 8. Last 1 yesterday. Liver enzymes normal. Prazosin and Trintellix are home meds which were held here. Total Time Total Time Spent Total Time Spent (In Minutes): 20 Discharge Plan Discharge Items Reason For Visit: OVERDOSE INTENTIONAL, HAS NOT EATEN NAUSEA Discharge Diagnosis: suicide attempt , depression Activity: Resume your previous activity Non-emergency contact: Therapist Call non-emergency contact if: your symptoms worsen Follow-up/Referrals: [facility] [Primary Care Provider] - Diet: Regular Addtl Attending Provider Instructions: follow up per psychiatry instruction Pending Studies at Discharge: No Stand-Alone Forms: My [facility] Medications and DC Order Prescriptions: Continued oxycodone 5 mg tablet 5 mg PO Q8H PRN (Reason: pain) Qty: 11 0RF Admission Data Admit Date/Time: 06/18/22 21:33 Attending Provider: Franky Astorga Admit Provider: Kvng Gotti Primary Care Provider: [facility] Other Providers: Red العلي Erica K. ; Marcelina Estrada Coding Level of Care Code D/C DAY MANAGEMENT <30 MINS Diagnoses Acetaminophen overdose T39.1X2A Encounter type: initial encounter Injury intent: intentional self-harm Mood disorder F39 Anxiety F41.9 Depression F32.A PTSD (post-traumatic stress disorder) F43.10 Normocytic anemia D64.9
[2022-06-21 09:06] LABS: Marijuana Quant, GCMS Urine 11 ng/mL (<5)
== END 2022-06-20 19:12 | DRG 918 ==
LOC: ED 18:49 → 4W 21:33 → SUATTDRO 21:33 → 4W 22:56